=== PATIENT | male | born 1960 | race Caucasian/White ===

== ENCOUNTER 2019-01-13 11:07 | Inpatient (IN) | payer OTHER ==
[2019-01-13 11:43] VITALS: BMI 30.6
--- NOTE | 2019-01-13 14:36 | HP ---
CIWA Score Nausea/Vomitin-Mild Nausea/No Vomiting Muscle Tremors: 2 Anxiety: 2 Agitation: 1-Slight > Activity Paroxysmal Sweats: No Perspiration Orientation: 2-Disoriented Date<2 days Tacttile Disturbances: 2-Mild Itch/Numbness/Burn Auditory Disturbances: 0-None Visual Disturbances: 2-Mild Sensitivity Headache: 0-None Present CIWA-Ar Total Score: 12 - Admission Criteria OASAS Guidelines: Admission for Medically Managed Detox: Requires at least one of the followin. CIWA greater than 12 2. Seizures within the past 24 hours 3. Delirium tremens within the past 24 hours 4. Hallucinations within the past 24 hours 5. Acute intervention needed for co occurring medical disorder 6. Acute intervention needed for co occurring psychiatric disorder 7. Severe withdrawal that cannot be handled at a lower level of care (continued vomiting, continued diarrhea, abnormal vital signs) requiring intravenous medication and/or fluids 8. Admission ROS S - HPI Allergies/Adverse Reactions: Allergies Allergy/AdvReac Type Severity Reaction Status Date / Time No Known Allergies Allergy Verified 01/13/19 11:20 History of Present Illness: pt here requesting detox for etoh use , preots 1/5 -1/ /day , started 18 mo ago after NM , prior 14-yr sobriety after 18-mo stay @ [facility] , denies illicits , denies seziures , blacjout , + tremors , latest use today , first age of use 7 tobacco : 6-7 cigs/day now , prior 1.5 ppd pmhx : NM x 1 , htn non- compliant w/ meds since August 2018 " I haven't taken my meds in a long time " reports no PCP PSHx : cardiac cath s/p stenting x 4 latest taken Plavix while hospitalized psych : depression , suicide attempt 14 yrs ago by hanging, denies current SI /HI denies legal issues [place] Exam Limitations: Clinical Condition, Intoxication - Ebola screening Have you traveled outside of the country in the last 21 days: No (N) Have you had contact with anyone from an Ebola affected area: No Do you have a fever: No - Review of Systems Constitutional: See HPI, Loss of Appetite EENT: reports: Hearing Loss, Other (glasses) Respiratory: reports: No Symptoms reported Cardiac: reports: No Symptoms Reported GI: reports: Diarrhea, Nausea, Poor Appetite : reports: No Symptoms Reported Musculoskeletal: reports: No Symptoms Reported Integumentary: reports: No Symptoms Reported Neuro: reports: Numbness, Tremors Endocrine: reports: See HPI (per pt told pre-DM) Hematology: reports: No Symptoms Reported Psychiatric: reports: Orientated x3, Anxious Patient History - Smoking Cessation Smoking history: Current every day smoker Have you smoked in the past 12 months: Yes Hx Chewing Tobacco Use: No Initiated information on smoking cessation: Yes 'Breaking Loose' booklet given: 01/13/19 - Substances abused Alcohol Substance route: Oral Frequency: Daily Amount used: 5th of vodka Age of first use: 11 Date of last use: 01/13/19 Admission Physical Exam [facility] - Vital Signs Vital Signs: Vital Signs - 24 hr 01/13/19 11:20 Temperature 98.9 F Pulse Rate 83 Respiratory 20 Rate Blood Pressure 130/77 - Physical General Appearance: Yes: Mild Distress, Intoxicated, Anxious HEENTM: Yes: EOMI, Normocephalic, Normal Voice, Hearing Decreased, Other (upper and lower dentures) Respiratory: Yes: Chest Non-Tender, Lungs Clear, Normal Breath Sounds, No Respiratory Distress, No Accessory Muscle Use Neck: Yes: No masses,lesions,Nodules, Trachea in good position Cardiology: Yes: Regular Rhythm, Regular Rate, S1, S2 Abdominal: Yes: Normal Bowel Sounds, Non Tender, Soft Musculoskeletal: Yes: full range of Motion, Gait Steady Extremities: Yes: Normal Range of Motion, Non-Tender, Tremors Neurological: Yes: Alert, Motor Strength 5/5, Normal Mood/Affect Integumentary: Yes: Warm - Diagnostic (1) Alcohol intoxication Current Visit: Yes Status: Acute Qualifiers: Complication of substance-induced condition: uncomplicated Qualified Code(s ): F10.920 - Alcohol use, unspecified with intoxication, uncomplicated (2) Nicotine dependence Current Visit: Yes Status: Chronic Qualifiers: Nicotine product type: cigarettes Breathalyzer - Breathalyzer Breathalyzer: 0.126 Urine Drug Screen - Test Device Lot number: [id number] Expiration date: 09/10/20 - Control Is test valid?: Yes - Results Drug screen NEGATIVE: Yes Inpatient Rehab Admission - Rehab Decision to Admit Inpatient rehab admission?: No
[2019-01-13] MEDS ORDERED: ASPIRIN 81 MG CHEWABLE TABLETS PO SCH (14:45)
[2019-01-13] MEDS ORDERED: MAGNESIUM HYDROX 2400MG/30ML ORAL SUSPENSION 30 ML CUP PO PRN (15:28)
[2019-01-13] MEDS ORDERED: MENTHOL/PHENOL 1 EACH UD MM PRN (15:28)
[2019-01-13] MEDS ORDERED: BISMUTH SUBSALICYLATE 524 MG/30 ML UD PO PRN (15:28)
[2019-01-13] MEDS ORDERED: METHOCARBAMOL 500 MG TABLET PO PRN (15:28)
[2019-01-13] MEDS ORDERED: hydrOXYzine PAMOATE 25 MG CAPSULE (FP) PO PRN (15:28)
[2019-01-13] MEDS ORDERED: MAG HYDROX/AL HYDROX/SIMETH 30 ML UNIT-DOSE CUP PO PRN (15:28)
[2019-01-13] MEDS ORDERED: MAGNESIUM CITRATE 300 ML BOTTLE PO PRN (15:28)
[2019-01-13] MEDS ORDERED: MELATONIN 5 MG TABLETS PO PRN (15:28)
[2019-01-13] MEDS ORDERED: ACETAMINOPHEN 325 MG TABLET (FP) PO PRN ×2 (15:28)
[2019-01-13] MEDS ORDERED: diazePAM 5 MG TABLET PO ONE (15:29)
[2019-01-13] MEDS: metoPROLOL SUCCINATE 25 MG TAB.SR.24H (FP) PO SCH (15:55)
[2019-01-13] MEDS: LISINOPRIL 5 MG TABLET (FP) PO SCH (15:55)
[2019-01-13] MEDS: CLOPIDOGREL BISULFATE 75 MG TABLET (FP) PO SCH (15:55)
[2019-01-13] MEDS: diazePAM 5 MG TABLET PO SCH (21:31)
[2019-01-13] MEDS: ATORVASTATIN CA 80 MG TABLET (FP) PO SCH (21:31)
[2019-01-13] MEDS: THIAMINE HCL 100 MG TABLET (FP) PO SCH (21:31)
[2019-01-14] MEDS: diazePAM 5 MG TABLET PO SCH ×3 (05:34→21:59)
[2019-01-14] MEDS: PRENATAL VITAMINS W/ FOLIC ACID TABLET (FP) PO SCH (10:07)
[2019-01-14] MEDS: metoPROLOL SUCCINATE 25 MG TAB.SR.24H (FP) PO SCH (10:07)
[2019-01-14] MEDS: CLOPIDOGREL BISULFATE 75 MG TABLET (FP) PO SCH (10:07)
[2019-01-14] MEDS: ASPIRIN 81 MG CHEWABLE TABLETS PO SCH (10:07)
[2019-01-14] MEDS: LISINOPRIL 5 MG TABLET (FP) PO SCH (10:07)
[2019-01-14 10:34] LABS: ALBUMIN 3.7 g/dl (3.4-5.0); BLOOD UREA NITROGEN 16.3 mg/dL (7-18); CALCIUM 8.8 mg/dL (8.5-10.1); POTASSIUM 3.2 mmol/L (3.5-5.1); TOT PROT 6.8 g/dl (6.4-8.2)
[2019-01-14 10:36] LABS: HEMATOCRIT 43.7 % (35.4-49); HEMOGLOBIN 14.6 GM/dL (11.7-16.9); MCH 32.6 pg (25.7-33.7); MCHC 33.5 g/dl (32.0-35.9); MEAN CELL VOLUME 97.5 fl (80-96); MEAN PLT VOLUME 8.9 fl (7.5-11.1); PLATELET COUNT 166 K/MM3 (134-434); RBC 4.48 M/mm3 (4.00-5.60); RDW 14.4 % (11.9-15.9); WHITE BLOOD COUNT 4.8 K/mm3 (4.0-10.0)
--- NOTE | 2019-01-14 10:36 | EKG ---
Test Reason : Blood Pressure : / mmHG Vent. Rate : 066 BPM Atrial Rate : 066 BPM P-R Int : 142 ms QRS Dur : 102 ms QT Int : 412 ms P-R-T Axes : 014 -10 018 degrees QTc Int : 431 ms NORMAL SINUS RHYTHM MINIMAL VOLTAGE CRITERIA FOR LVH, MAY BE NORMAL VARIANT NONSPECIFIC T WAVE ABNORMALITY ABNORMAL ECG NO PREVIOUS ECGS AVAILABLE Confirmed by JAH YOUNG MD ([id number]) on 01/14/2019 10:35:46 AM Referred By: Confirmed By:JAH YOUNG MD
--- NOTE | 2019-01-14 11:04 | PN ---
[facility] CIWA - CIWA Score Nausea/Vomitin-Mild Nausea/No Vomiting Muscle Tremors: 3 Anxiety: 3 Agitation: 2 Paroxysmal Sweats: 2 Orientation: 0-Oriented Tacttile Disturbances: 0-None Auditory Disturbances: 0-None Visual Disturbances: 0-None Headache: 0-None Present CIWA-Ar Total Score: 11 [facility] Progress Note (SOAP) Subjective: 58 YEARS OLD MALE ADMITTED ON 01/13/19 FOR ALCOHOL WITHDRAWAL SX MANAGEMENT TREATED WITH VALIUM DETOX REGIMEN ATE BREAKFAST NO TROUBLE CHEWING NOR SWALLOWING TOLERATE FOOD AND FLUID WELL Objective: 01/14/19 11:00 Vital Signs Temperature 97.5 F L 01/14/19 09:19 Pulse Rate 69 01/14/19 09:19 Respiratory Rate 18 01/14/19 09:19 Blood Pressure 130/71 01/14/19 09:19 O2 Sat by Pulse Oximetry (%) Laboratory Last Values WBC 4.8 K/mm3 (4.0-10.0) 01/14/19 08:00 RBC 4.48 M/mm3 (4.00-5.60) 01/14/19 08:00 Hgb 14.6 GM/dL (11.7-16.9) 01/14/19 08:00 Hct 43.7 % (35.4-49) 01/14/19 08:00 MCV 97.5 fl (80-96) H 01/14/19 08:00 MCH 32.6 pg (25.7-33.7) 01/14/19 08:00 MCHC 33.5 g/dl (32.0-35.9) 01/14/19 08:00 RDW 14.4 % (11.9-15.9) 01/14/19 08:00 Plt Count 166 K/MM3 (134-434) 01/14/19 08:00 MPV 8.9 fl (7.5-11.1) 01/14/19 08:00 Sodium 141 mmol/L (136-145) 01/14/19 08:00 Potassium 3.2 mmol/L (3.5-5.1) L 01/14/19 08:00 Chloride 104 mmol/L (98-107) 01/14/19 08:00 Carbon Dioxide 28 mmol/L (21-32) 01/14/19 08:00 Anion Gap 10 MMOL/L (8-16) 01/14/19 08:00 BUN 16.3 mg/dL (7-18) 01/14/19 08:00 Creatinine 1.0 mg/dL (0.55-1.3) 01/14/19 08:00 Est GFR (CKD-EPI)AfAm 94.39 01/14/19 08:00 Est GFR (CKD-EPI)NonAf 81.44 01/14/19 08:00 Random Glucose 222 mg/dL (74-106) H 01/14/19 08:00 Calcium 8.8 mg/dL (8.5-10.1) 01/14/19 08:00 Total Bilirubin 1.0 mg/dL (0.2-1) 01/14/19 08:00 AST 133 U/L (15-37) H 01/14/19 08:00 ALT 121 U/L (13-61) H 01/14/19 08:00 Alkaline Phosphatase 85 U/L (45-117) 01/14/19 08:00 Total Protein 6.8 g/dl (6.4-8.2) 01/14/19 08:00 Albumin 3.7 g/dl (3.4-5.0) 01/14/19 08:00 LAB NOTED 01/14/19 11:02 PATIENT WILL RECEIVE k+ 40 MEQ X 1 AND 20 MEQ BID REPEAT k+ REPEAT AST FASTING GLUCOSE Assessment: 01/14/19 11:00 ALCOHOL WITHDRAWAL SX Plan: CONTINUE VALIUM DETOX REGIMEN OBESE
[2019-01-14] MEDS ORDERED: POTASSIUM CHLORIDE ORAL LIQUID 20 MEQ/15 ML PO ONE (12:10)
--- NOTE | 2019-01-14 15:10 | CONSULT ---
[facility] Psychiatric Consult - Data Date of interview: 01/14/19 Admission source: [facility] Identifying data: First admission to [facility] for this 58 y/o male self-referred for detoxification (MAGALIE issues : alcohol, nicotine). Interviewed at [address] [place] [address]. Patient is , father of five, domiciled, unemployed and supported on welfare. Substance Abuse History: Discussed with the patient. Details in current [facility] report as follows : Smoking history: Current every day smoker. Have you smoked in the past 12 months: Yes. Hx Chewing Tobacco Use: No. Initiated information on smoking cessation: Yes. 'Breaking Loose' booklet given: 01/13/19. - Substances abused. Alcohol. Substance route: Oral. Frequency: Daily. Amount used: 5th of vodka. Age of first use: 11. Date of last use: 01/13/19 Medical History: Medical profile is remarkable for antecedent of myocardial infarction (cardiac catheterization : four stents) and hypertension. Psychiatric History: Patient endorses history of psychiatric hospitalization about 6-7 years ago. No recall of name of institution. Mr Street indicates that he was diagnosed with MDD and Panic Disorder. Medicated with propanolol + citalopram. Sees a psychiatrist at a private office in the [place]. Patient admits to a remote history of suicide attempt via hanging (14-15 years ago). Physical/Sexual Abuse/Trauma History: Patient denies. Served for eight years in the [employer]. No exposure to combat. Additional Comment: Negative toxicology. Mental Status Exam - Mental Status Exam Alert and Oriented to: Time, Place, Person Cognitive Function: Good Patient Appearance: Well Groomed Mood: Nervous, Withdrawn, Hopeful Affect: Mood Congruent, Constricted Patient Behavior: Fatigued, Appropriate, Cooperative Speech Pattern: Clear Voice Loudness: Normal Thought Process: Intact, Goal Oriented Thought Disorder: Not Present Hallucinations: Denies Suicidal Ideation: Denies Homicidal Ideation: Denies Insight/Judgement: Fair Sleep: Fair Appetite: Good Muscle strength/Tone: Normal Gait/Station: Other (not observed; in bed for entire interview) Psychiatric Findings - Problem List (Vulcan 1, 2,3) (1) Nicotine dependence Current Visit: Yes Status: Chronic Qualifiers: Nicotine product type: cigarettes (2) Alcohol use disorder Current Visit: Yes Status: Chronic (3) Substance induced mood disorder Current Visit: Yes Status: Chronic (4) History of depression Current Visit: Yes Status: Chronic (5) Anxiety disorder Current Visit: Yes Status: Chronic - Initial Treatment Plan Initial Treatment Plan: Psychoeducation. Sleep hygiene. Detoxification. AA meetings. MAT services : discussed with the patient. Medications : citalopram 20 mg po daily. Propanolol already ordered by medical provider. Side effects/ benefits of both drugs are discussed with the patient. Mr street is in agreement with this plan of care. External pharmacy activity revisited. [employer] spoke to pharmacist at [facility] : confirmed refills for both drugs (last issued on 08/11/18). Observation.
[2019-01-14] MEDS: diazePAM 5 MG TABLET PO PRN (17:06)
[2019-01-14] MEDS: ATORVASTATIN CA 80 MG TABLET (FP) PO SCH (21:59)
[2019-01-14] MEDS: THIAMINE HCL 100 MG TABLET (FP) PO SCH (21:59)
[2019-01-15] MEDS: diazePAM 5 MG TABLET PO SCH ×2 (05:54→17:54)
[2019-01-15] MEDS ORDERED: POTASSIUM CHLORIDE TABS 20 MEQ TABLET.ER (FP) PO SCH (10:00)
[2019-01-15 10:07] LABS: POTASSIUM 3.7 mmol/L (3.5-5.1)
[2019-01-15] MEDS: LISINOPRIL 5 MG TABLET (FP) PO SCH (10:24)
[2019-01-15] MEDS: CLOPIDOGREL BISULFATE 75 MG TABLET (FP) PO SCH (10:24)
[2019-01-15] MEDS: ASPIRIN 81 MG CHEWABLE TABLETS PO SCH (10:24)
[2019-01-15] MEDS: metoPROLOL SUCCINATE 25 MG TAB.SR.24H (FP) PO SCH (10:24)
[2019-01-15] MEDS: diazePAM 5 MG TABLET PO PRN ×2 (10:25→22:06)
[2019-01-15] MEDS: PRENATAL VITAMINS W/ FOLIC ACID TABLET (FP) PO SCH (10:25)
[2019-01-15] MEDS: CITALOPRAM HYDROBROMIDE 20 MG TABLET (FP) PO SCH (10:25)
--- NOTE | 2019-01-15 11:05 | PN ---
S CIWA - CIWA Score Nausea/Vomitin-No Nausea/No Vomiting Muscle Tremors: 2 Anxiety: 3 Agitation: 1-Slight > Activity Paroxysmal Sweats: No Perspiration Orientation: 0-Oriented Tacttile Disturbances: 0-None Auditory Disturbances: 0-None Visual Disturbances: 0-None Headache: 0-None Present CIWA-Ar Total Score: 6 [facility] Progress Note (SOAP) Subjective: 58 years old male admitted on 01/13/19 for alcohol withdrawal sx management treated with valium detox regimen feeling better less tremor mild anxiety Objective: 01/15/19 11:00 Vital Signs Temperature 97.5 F L 01/15/19 09:10 Pulse Rate 76 01/15/19 09:10 Respiratory Rate 18 01/15/19 09:10 Blood Pressure 126/84 01/15/19 09:10 O2 Sat by Pulse Oximetry (%) Laboratory Last Values WBC 4.8 K/mm3 (4.0-10.0) 01/14/19 08:00 RBC 4.48 M/mm3 (4.00-5.60) 01/14/19 08:00 Hgb 14.6 GM/dL (11.7-16.9) 01/14/19 08:00 Hct 43.7 % (35.4-49) 01/14/19 08:00 MCV 97.5 fl (80-96) H 01/14/19 08:00 MCH 32.6 pg (25.7-33.7) 01/14/19 08:00 MCHC 33.5 g/dl (32.0-35.9) 01/14/19 08:00 RDW 14.4 % (11.9-15.9) 01/14/19 08:00 Plt Count 166 K/MM3 (134-434) 01/14/19 08:00 MPV 8.9 fl (7.5-11.1) 01/14/19 08:00 Sodium 141 mmol/L (136-145) 01/14/19 08:00 Potassium 3.7 mmol/L (3.5-5.1) 01/15/19 08:00 Chloride 104 mmol/L (98-107) 01/14/19 08:00 Carbon Dioxide 28 mmol/L (21-32) 01/14/19 08:00 Anion Gap 10 MMOL/L (8-16) 01/14/19 08:00 BUN 16.3 mg/dL (7-18) 01/14/19 08:00 Creatinine 1.0 mg/dL (0.55-1.3) 01/14/19 08:00 Est GFR (CKD-EPI)AfAm 94.39 01/14/19 08:00 Est GFR (CKD-EPI)NonAf 81.44 01/14/19 08:00 Random Glucose 222 mg/dL (74-106) H 01/14/19 08:00 Fasting Glucose 158 mg/dL (74-106) H 01/15/19 08:00 Calcium 8.8 mg/dL (8.5-10.1) 01/14/19 08:00 Total Bilirubin 1.0 mg/dL (0.2-1) 01/14/19 08:00 AST 131 U/L (15-37) H 01/15/19 08:00 ALT 121 U/L (13-61) H 01/14/19 08:00 Alkaline Phosphatase 85 U/L (45-117) 01/14/19 08:00 Total Protein 6.8 g/dl (6.4-8.2) 01/14/19 08:00 Albumin 3.7 g/dl (3.4-5.0) 01/14/19 08:00 RPR Titer Nonreactive (NONREACTIVE) 01/14/19 08:00 01/15/19 11:02 discontinue K+ supplement fasting glucose elevation that random glucose of 74-106 equal fasting glucose of 74-106 encourage the patient following up with primary care provider in the community for glucose tolerance test ast elevation mostly related to alcohol consumption recommend alcohol free for period of time and follow up ast with primary care provider Assessment: 01/15/19 11:04 alcohol withdrawal sx Plan: continue valium detox
[2019-01-15] MEDS: ATORVASTATIN CA 80 MG TABLET (FP) PO SCH (22:04)
[2019-01-15] MEDS: THIAMINE HCL 100 MG TABLET (FP) PO SCH (22:06)
[2019-01-16] MEDS ORDERED: diazePAM 5 MG TABLET PO ONE (06:00)
[2019-01-16 06:16] VITALS: BP 155/96; PULSE 60; TEMP 98.2
--- NOTE | 2019-01-16 09:17 | DS ---
[facility] Detox Discharge Summary Admission Date: 01/13/19 Discharge Date: 01/23/19 - History Present History: Alcohol Dependence, Cocaine Dependence Additional Comments: PATIENT MEDICALLY STABLE, TOLERATED DETOX WELL. PATIENT TO FOLLOW UP WITH PRIMARY CARE PROVIDER UPON. FOLLOW WITH REFERRAL TO REHAB. Pertinent Past History: PATIENT AOX3 NO ACUTE DISTRESS EENT WNL NO ADVENTITIOUS BREATH SOUNDS FULL ROM NO GAIT DISTURBANCE - Physical Exam Results Vital Signs: Vital Signs Temperature 98.2 F 01/16/19 06:15 Pulse Rate 60 01/16/19 06:15 Respiratory Rate 18 01/16/19 06:15 Blood Pressure 155/96 01/16/19 06:15 O2 Sat by Pulse Oximetry (%) Pertinent Admission Physical Exam Findings: Vital Signs Temperature 98.2 F 01/16/19 06:15 Pulse Rate 60 01/16/19 06:15 Respiratory Rate 18 01/16/19 06:15 Blood Pressure 155/96 01/16/19 06:15 O2 Sat by Pulse Oximetry (%) Laboratory Last Values WBC 4.8 K/mm3 (4.0-10.0) 01/14/19 08:00 RBC 4.48 M/mm3 (4.00-5.60) 01/14/19 08:00 Hgb 14.6 GM/dL (11.7-16.9) 01/14/19 08:00 Hct 43.7 % (35.4-49) 01/14/19 08:00 MCV 97.5 fl (80-96) H 01/14/19 08:00 MCH 32.6 pg (25.7-33.7) 01/14/19 08:00 MCHC 33.5 g/dl (32.0-35.9) 01/14/19 08:00 RDW 14.4 % (11.9-15.9) 01/14/19 08:00 Plt Count 166 K/MM3 (134-434) 01/14/19 08:00 MPV 8.9 fl (7.5-11.1) 01/14/19 08:00 Sodium 141 mmol/L (136-145) 01/14/19 08:00 Potassium 3.7 mmol/L (3.5-5.1) 01/15/19 08:00 Chloride 104 mmol/L (98-107) 01/14/19 08:00 Carbon Dioxide 28 mmol/L (21-32) 01/14/19 08:00 Anion Gap 10 MMOL/L (8-16) 01/14/19 08:00 BUN 16.3 mg/dL (7-18) 01/14/19 08:00 Creatinine 1.0 mg/dL (0.55-1.3) 01/14/19 08:00 Est GFR (CKD-EPI)AfAm 94.39 01/14/19 08:00 Est GFR (CKD-EPI)NonAf 81.44 01/14/19 08:00 Random Glucose 222 mg/dL (74-106) H 01/14/19 08:00 Fasting Glucose 158 mg/dL (74-106) H 01/15/19 08:00 Calcium 8.8 mg/dL (8.5-10.1) 01/14/19 08:00 Total Bilirubin 1.0 mg/dL (0.2-1) 01/14/19 08:00 AST 131 U/L (15-37) H 01/15/19 08:00 ALT 121 U/L (13-61) H 01/14/19 08:00 Alkaline Phosphatase 85 U/L (45-117) 01/14/19 08:00 Total Protein 6.8 g/dl (6.4-8.2) 01/14/19 08:00 Albumin 3.7 g/dl (3.4-5.0) 01/14/19 08:00 RPR Titer Nonreactive (NONREACTIVE) 01/14/19 08:00 - Treatment Hospital Course: Detox Protocol Followed, Detoxed Safely, Responded well, Discharged Condition Good, Rehab Referral Accepted Patient has Accepted a Rehab Referral to: [facility] - Medication Discharge Medications: Ambulatory Orders Amlodipine Besylate [Norvasc -] 5 mg PO DAILY 01/13/19 Aspirin [ASA -] 81 mg PO DAILY 01/13/19 Atorvastatin Ca [Lipitor] 80 mg PO HS 01/13/19 Citalopram Hydrobromide [Celexa -] 40 mg PO DAILY 01/13/19 Clopidogrel Bisulfate [Plavix -] 75 mg PO DAILY 01/13/19 Lisinopril [Prinivil] 5 mg PO DAILY 01/13/19 Metoprolol Succinate [Toprol Xl] 25 mg PO DAILY 01/13/19 Multivitamins [Multivit ([facility] Formulary)] 1 tab PO DAILY 01/13/19 propRANOLol HCL [Inderal -] 40 mg PO BID 01/13/19 - Diagnosis (1) Alcohol use disorder Status: Chronic (2) Nicotine dependence Status: Chronic Qualifiers: Nicotine product type: cigarettes (3) Substance induced mood disorder Status: Chronic - AMA Did Patient Leave Against Medical Advice: No
[2019-01-16] MEDS: ASPIRIN 81 MG CHEWABLE TABLETS PO SCH (09:44)
[2019-01-16] MEDS: LISINOPRIL 5 MG TABLET (FP) PO SCH (09:45)
[2019-01-16] MEDS: CITALOPRAM HYDROBROMIDE 20 MG TABLET (FP) PO SCH (09:45)
[2019-01-16] MEDS: metoPROLOL SUCCINATE 25 MG TAB.SR.24H (FP) PO SCH (09:45)
[2019-01-16] MEDS: CLOPIDOGREL BISULFATE 75 MG TABLET (FP) PO SCH (09:45)
[2019-01-16] MEDS: PRENATAL VITAMINS W/ FOLIC ACID TABLET (FP) PO SCH (09:45)
== END 2019-01-16 09:26 | disposition home or self-care (01) | DRG 775 ==
LOC: YASAS 11:07 → Y3N 15:20
PROVIDERS: ADMIT Allergy & Immunology; ATTEND Allergy & Immunology
PROC: HZ2ZZZZ Detoxification Services for Substance Abuse Treatment (ICD-10-PCS; principal; 2019-01-13)
DX: F10.230 Alcohol dependence with withdrawal, uncomplicated (principal); F17.210 Nicotine dependence, cigarettes, uncomplicated; F19.24 Other psychoactive substance dependence with psychoactive substance-induced mood disorder; F41.8 Other specified anxiety disorders; F32.9 Major depressive disorder, single episode, unspecified; I25.10 Atherosclerotic heart disease of native coronary artery without angina pectoris; I10 Essential (primary) hypertension; Z95.5 Presence of coronary angioplasty implant and graft; I25.2 Old myocardial infarction; Z79.82 Long term (current) use of aspirin
CPT/HCPCS: 36415; 80053; 82947; 84132; 84450; 85027; 86593; 93005; 93010